=== PATIENT | male | born 2000 | race Caucasian/White ===

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

== ENCOUNTER 2020-07-29 18:22 | Emergency (ER) | payer SELFPAY ==
[~2020-07-29] VITALS: Ht 172.7 cm; Wt 136.4 kg
[~2020-07-29 18:22] MED LIST: TOPAMAX100 MG PO; ZOFRAN8 MG PO
[2020-07-29 18:39] VITALS: Ht 172.7 cm; Wt 136.4 kg
[2020-07-29 19:32] LABS: INFLUENZA TYPE A NEGATIVE (NEGATIVE); INFLUENZA TYPE B NEGATIVE (NEGATIVE); SARS-CoV-2 ANTIGEN NEGATIVE- SARS-COV-2 (NEGATIVE)
[2020-07-29 19:39] LABS: CALC OSMOLALITY 271 mosm/kg (275-300); CALCIUM 9.2 mg/dL (8.5-10.1); CARBON DIOXIDE 26.3 mmol/L (21.0-32.0); CHLORIDE - SERUM 99 mmol/L (98-107); CREATININE - SERUM 0.9 mg/dL (0.6-1.3); GLUCOSE 106 mg/dL (74-106); POTASSIUM - SERUM 3.8 mmol/L (3.5-5.1); SODIUM 136 mmol/L (136-145); UREA NITROGEN 12 mg/dL (7-18); eGFR NON AFRICAN AMERICAN > 90 mL/min (90-120)
[2020-07-29 19:41] LABS: BASOPHILS 0.1 % (0-2); EOSINOPHILS 0.1 % (0-7); HEMOGLOBIN 13.9 g/dL (13.5-17.5); LYMPHOCYTES 7.9 % (15-50); MCH 25.9 pg (26.0-34.0); MCHC 33.1 g/dL (31.0-37.0); MCV 78.1 fL (80.0-100.0); MEAN PLATELET VOLUME 7.8 fL (7.4-10.4); MONOCYTES 10.4 % (2-11); NEUTROPHILS 81.5 % (40-80); PLATELET COUNT 276 10x3/uL (130-400); RBC 5.38 10x6/uL (4.20-6.10); RDW 13.4 % (11.5-14.5); WBC 21.6 10x3/uL (4.8-10.8)
[2020-07-29 19:45] LABS: ALBUMIN 3.3 g/dL (3.4-5.0); ALKALINE PHOSPHATASE 92 U/L (30-120); ALT (SGPT) 29 U/L (10-68); BILIRUBIN - TOTAL 0.53 mg/dL (0.2-1.3); PROTEIN - SERUM 8.4 g/dL (6.4-8.2)
[2020-07-29 21:18] LABS: BILIRUBIN NEGATIVE (NEGATIVE); KETONE MODERATE mg/dL (NEGATIVE); NITRITE NEGATIVE (NEGATIVE); UROBILINOGEN NORMAL mg/dL (< 2)
[2020-07-29] MEDS ORDERED: AUGMENTIN 875-11 TAB PO (21:34)
[2020-07-29 22:00] VITALS: BP 121/72
== END 2020-07-29 22:29 | disposition home or self-care (01) ==
LOC: D.ER 18:22
PROVIDERS: Family Medicine
DX: J02.0 Streptococcal pharyngitis (principal); R50.9 Fever, unspecified; D72.829 Elevated white blood cell count, unspecified; R07.89 Other chest pain; Z72.0 Tobacco use